=== PATIENT | male | born 1945 | race Two or more races ===

== ENCOUNTER 2018-09-23 19:00 | Emergency (ER) | payer MEDICARE, MEDICAID ==
[~2018-09-23] VITALS: Ht 167.6 cm; Wt 78.9 kg
[~2018-09-23 19:00] MED LIST: CLOZARIL25 MG PO; COLACE100 MG PO; COMTAN200 MG PO; LEXAPRO5 M1 PO; METFORMIN ER500 M1 PO; MIRAPEX0.25 MG PO; SINEMET 25-1001 TAB PO; TRAZODONE HYDR100 MG PO; ZESTRIL20 MG PO
[2018-09-23 19:08] VITALS: Ht 167.6 cm; Wt 78.9 kg
[2018-09-23 23:17] VITALS: BP 133/78
== END 2018-09-23 23:17 ==
LOC: ED 19:00
DX: S70.01XA Contusion of right hip, initial encounter (principal); M25.561 Pain in right knee; R51 Headache; F20.9 Schizophrenia, unspecified; W18.2XXA Fall in (into) shower or empty bathtub, initial encounter; Y93.89 Activity, other specified; Y92.89 Other specified places as the place of occurrence of the external cause; Y99.8 Other external cause status
CPT/HCPCS: 82962; J1885